=== PATIENT | male | born 1965 | race Caucasian/White ===

== ENCOUNTER 2022-03-29 01:46 | Emergency (ER) | payer OTHER ==
[2022-03-29] MEDS ORDERED: Magnesium 2 GM/50 ML BAG (IN WATER) ONE (02:26)
[2022-03-29 02:41] LABS: Phosphorus 2.6 mg/dL (2.3-4.7)
[2022-03-29 02:44] LABS: Digoxin 0.93 ng/mL (0.8-2.0)
[2022-03-29 02:46] LABS: ALT (SGPT) 105 U/L (8-55); AST (SGOT) 72 U/L (5-34); Albumin 3.6 g/dL (3.5-5.0); Alkaline Phosphatase 72 U/L (40-110); Anion Gap 19 mmol/L (10-20); BUN (Urea Nitrogen) 42 mg/dL (8.4-25.7); Bilirubin, Total 1.3 mg/dL (0.2-1.2); Calc. Creatinine Clearance 0 mL/min (70-130); Calcium 8.8 mg/dL (7.8-10.44); Carbon Dioxide 29 mmol/L (22-29); Chloride 82 mmol/L (98-107); Glucose 532 mg/dL (70-105); Magnesium 2.1 mg/dL (1.6-2.6); Protein, Total 6.6 g/dL (6.0-8.3); Sodium 127 mmol/L (136-145)
[2022-03-29 02:49] LABS: Potassium 2.5 mmol/L (3.5-5.1)
[2022-03-29 03:03] LABS: CKMB 6.2 ng/mL (0-6.6)
[2022-03-29] MEDS ORDERED: Potassium Chloride 20 MEQ TAB ONE (03:15)
[2022-03-29] MEDS ORDERED: Potassium Chloride 20 MEQ/100 ML PREMIX BAG ONE (03:15)
[2022-03-29] MEDS ORDERED: Aspirin Chewable 81 MG TAB ONE (03:15)
[2022-03-29 05:56] LABS: Troponin I 0.093 ng/mL (< 0.028)
[2022-03-29 06:19] LABS: SARS-CoV-2 NAA Rapid Test Not Detected (NotDetected)
[2022-03-29 06:20] LABS: Puncture Site Other Site
[2022-03-29 06:20] LABS: Bilirubin Neg (Negative); Blood, Urine 250 (Negative); Clarity Clear (Clear); Glucose, Urine (Dipstick) >=1000 mg/dL (Negative); Ketone, Urine Negative (Negative); Leukocyte Negative (Negative); Nitrite Negative (Negative); Protein, Urine (Dipstick) 15 mg/dl (Neg-Trace); Specific Gravity, Urine 1.005 (1.002-1.036); Urobilinogen Normal mg/dL (Less than 2)
[2022-03-29 06:21] LABS: Actual Bicarbonate (HCO3v) 27 mEq/L (22-28); pH (venous) 7.63 (7.32-7.43)
[2022-03-29 06:22] LABS: Calcium, Ionized (venous) 0.92 mmol/L (1.16-1.32); Chloride (VBG) 83 mmol/L (98-106); Hemoglobin (Hb) 17.6 g/dL (13.1-17.2); Potassium (VBG) 2.54 mmol/L (3.70-5.30); Sodium 121.1 mmol/L (133-146)
[2022-03-29 06:33] LABS: Bacteria/HPF None Seen HPF (None Seen); Mucous/LPF None Seen LPF (<2+); Squamous Epithelial None Seen HPF (0-3); WBC/HPF 0-3 HPF (0-3)
[2022-03-29 07:07] LABS: Hemoglobin 17.2 g/dL (13.5-17.5); Mean Corpuscular Hemoglobin 32.9 pg (27.0-33.0); Mean Corpuscular Volume 88.9 fl (81.2-95.1); Mean Platelet Volume 9.6 fl (7.4-10.4); RBC Distribution Width 13.4 % (11.5-14.5); Red Blood Cell (RBC) Count 5.23 10x6/uL (4.32-5.72)
[2022-03-29 07:24] LABS: MDiff Complete? YES; Platelet Count 510 10x3/uL (150-450)
[2022-03-29 07:35] LABS: Band 1 % (5-11); Eosinophils 2 % (0-10); Lymphocytes 23 % (21-51); Monocytes 5 % (0-10); Neutrophil 65 % (42-75); Reactive Lymphocytes 4 % (0-10)
[2022-03-29 07:36] LABS: Platelet Morphology Comment Appears Adequate; RBC Morphology Normal
== END 2022-03-29 10:49 | disposition short-term general hospital (02) ==
LOC: CSHERS 01:46
DX: E11.65 Type 2 diabetes mellitus with hyperglycemia (principal); E87.6 Hypokalemia; R94.31 Abnormal electrocardiogram [ECG] [EKG]; K21.9 Gastro-esophageal reflux disease without esophagitis; I11.0 Hypertensive heart disease with heart failure; I50.9 Heart failure, unspecified; M10.9 Gout, unspecified; E66.01 Morbid (severe) obesity due to excess calories; Z68.45 Body mass index [BMI] 70 or greater, adult; Z20.822 Contact with and (suspected) exposure to COVID-19; Z79.82 Long term (current) use of aspirin; Z79.899 Other long term (current) drug therapy
CPT/HCPCS: 36415; 36416; 80053; 80162; 81003; 81015; 82010; 82553; 82805; 83735; 84100; 84484; 85025; 93005; 96365; 96366; 96367; J3475; J3480; U0002